=== PATIENT | female | born 1975 | race American Indian/Alaskan Native ===

== ENCOUNTER 2018-10-05 13:58 | Emergency (ER) | payer OTHER ==
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
[2018-10-05 15:34] VITALS: BP 140/85; PULSE 94; RESP 18; TEMP 98.2
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
[2018-10-05 19:37] VITALS: O2SAT 98
== END 2018-10-05 19:36 | disposition home or self-care (01) ==
LOC: MERGE 13:58 → ED 13:58
DX: M54.5 Low back pain (principal); M25.50 Pain in unspecified joint; M41.9 Scoliosis, unspecified; E11.9 Type 2 diabetes mellitus without complications
CPT/HCPCS: 72070; 72110; 73502; 81025; 96372; 99282; J1885